=== PATIENT | male | born 1955 | race Caucasian/White ===

== ENCOUNTER 2019-06-09 11:25 | Emergency (ER) | payer MEDICAID ==
[~2019-06-09] VITALS: Ht 165.1 cm; Wt 68.0 kg
[2019-06-09] MEDS ORDERED: PREDNISONE 20MG TABLET PO ONE (14:00)
[2019-06-09 14:05] VITALS: BP 105/75
== END 2019-06-09 14:10 | disposition home or self-care (01) ==
LOC: ER 11:25
DX: L25.9 Unspecified contact dermatitis, unspecified cause (principal); F17.200 Nicotine dependence, unspecified, uncomplicated; Z90.49 Acquired absence of other specified parts of digestive tract
CPT/HCPCS: 99282

== ENCOUNTER 2020-01-07 15:09 | Inpatient (IN) | payer MEDICAID ==
[2020-01-07] VITALS (12 sets, daily range): BP systolic 101–135; BP diastolic 48–78
[~2020-01-07] VITALS: Ht 167.6 cm; Wt 64.9 kg
[2020-01-07] MEDS ORDERED: SODIUM CHLORIDE 0.9% 1000ML BAG (SEPSIS BOLUS) IV ONE (15:30)
[2020-01-07] MEDS ORDERED: ETOMIDATE 2MG/ML 10ML VIAL IV ONE (15:37)
[2020-01-07] MEDS ORDERED: SUCCINYLCHOLINE CHLORIDE 200MG/10ML IV ONE (15:37)
[2020-01-07] MEDS ORDERED: LORAZEPAM 2MG/ML CPJ ONE (15:57)
[2020-01-07] MEDS ORDERED: LORAZEPAM 2MG/ML CPJ IV ONE ×2 (16:00)
[2020-01-07] MEDS ORDERED: FENTANYL CITRATE/PF 500 MCG in SODIUM CHLORIDE 0.9% 40 ML IV PRN ×4 (16:00)
[2020-01-07] MEDS ORDERED: MIDAZOLAM HCL 2 MG/2 ML VIAL IV ONE (16:00)
[2020-01-07] MEDS ORDERED: MIDAZOLAM HCL 50 MG in DEXTROSE 5% WATER 40 ML IV ONE ×4 (16:00)
[2020-01-07 16:30] LABS: CLARITY URINE CLOUDY (CLEAR); COLOR URINE DARK YELLOW (YELLOW); KETONES URINE TRACE (NEGATIVE); LEUKOCYTE ESTERASE URINE 1+ (NEGATIVE); NITRITE URINE NEGATIVE (NEGATIVE); OCCULT BLOOD URINE 2+ (NEGATIVE); PH URINE 5.5 (4.5-8.0); PROTEIN URINE 3+ (NEGATIVE); SPECIFIC GRAVITY URINE 1.026 (1.005-1.030)
[2020-01-07 16:46] LABS: BG BASE EXCESS -2.8 mmol/L (-2.0-2.0); BG CARBOXYHEMOGLOBIN 0.3 % (0.5-1.5); BG DEOXYHEMOGLOBIN 8.8 % (0.0-5.0); BG FRACTION INSPIRED OXYGEN 100; BG HCO3 ACT 21.2 mmol/L (22.0-26.0); BG METHEMOGLOBIN 0.2 % (0.0-1.5); BG OXYGEN SATURATION 91.2 % (92.0-98.5); BG OXYHEMOGLOBIN 90.7 % (94.0-97.0); BG PCO2 34.7 mmHg (35.0-45.0); BG PH 7.404 (7.350-7.450); BG SAMPLE SITE RIGHT BRACHIAL; BG TIDAL VOLUME(mL) 500 mL; BG TOTAL HEMOGLOBIN 14.2 g/dL (12.0-18.0); BG VENT MODE VENT - A/C; BG VENT RATE 12 set
[2020-01-07] MEDS ORDERED: MAGNESIUM 2 G PREMIX 50 ML IV SCH (18:00)
[2020-01-07] MEDS ORDERED: VANCOMYCIN 1 G PREMIX 200 ML IV SCH (18:00)
[2020-01-07] MEDS ORDERED: PIPERACILLIN/TAZ 3.375G PREMIX 50 ML IV SCH ×2 (18:00→19:15)
[2020-01-07 18:02] LABS: HEMATOCRIT. 40.3 % (42.0-52.0); HEMOGLOBIN. 13.4 g/dL (14.0-18.0); MEAN CORPUSCULAR HEMOGLOBIN 29.5 pg (28.0-32.0); MEAN CORPUSCULAR VOLUME 88.9 fL (80.0-94.0); MEAN PLATELET VOLUME 10.2 fl (7.4-10.4); PLATELET 313 x1000/uL (130-400); RED BLOOD CELL COUNT 4.53 mill/uL (4.7-6.1); RED CELL DISTRIBUTION WIDTH 13.7 % (11.6-14.6)
[2020-01-07 18:10] LABS: INR 1.2; PROTHROMBIN TIME 12.7 sec (9.6-11.0)
[2020-01-07 18:15] LABS: CHLORIDE 97 mEq/L (98-107)
[2020-01-07 18:22] LABS: PLATELET ESTIMATE NORMAL
[2020-01-07] MEDS ORDERED: ONDANSETRON HCL 4MG/2ML INJ IV PRN (19:15)
[2020-01-07] MEDS ORDERED: DOCUSATE SODIUM 100MG CAPSULE PO PRN (19:15)
[2020-01-07] MEDS ORDERED: AZITHROMYCIN 500 MG in DEXT 5% WATER 250 ML IV SCH (20:00)
[2020-01-07] MEDS: ENOXAPARIN 40MG/0.4ML SYR SUBCUT SCH (22:16)
[2020-01-07] MEDS: DEXT 5%/0.45% NACL 1000ML 1,000 ML IV SCH (22:16)
[2020-01-07] MEDS: FENTANYL CITRATE/PF 1,000 MCG in SODIUM CHLORIDE 0.9% 80 ML IV PRN (22:49)
[2020-01-07] MEDS: MIDAZOLAM HCL 100 MG in DEXT 5% WATER 80 ML IV PRN (22:49)
[2020-01-08] VITALS (96 sets, daily range): BP systolic 73–131; BP diastolic 49–84
[2020-01-08] MEDS: ACETAMINOPHEN 325MG TABLET PO PRN (00:11)
[2020-01-08 00:52] LABS: BG BASE EXCESS -0.7 mmol/L (-2.0-2.0); BG CARBOXYHEMOGLOBIN 0.1 % (0.5-1.5); BG DEOXYHEMOGLOBIN 22.7 % (0.0-5.0); BG FRACTION INSPIRED OXYGEN 100; BG HCO3 ACT 24.5 mmol/L (22.0-26.0); BG METHEMOGLOBIN 0.2 % (0.0-1.5); BG OXYGEN SATURATION 77.2 % (92.0-98.5); BG PCO2 42.1 mmHg (35.0-45.0); BG PH 7.382 (7.350-7.450); BG PO2 42.2 mmHg (75.0-100.0); BG SAMPLE SITE RIGHT RADIAL; BG TIDAL VOLUME(mL) 500 mL; BG TOTAL HEMOGLOBIN 14.5 g/dL (12.0-18.0); BG VENT MODE VENT - A/C; BG VENT RATE 12 set
[2020-01-08] MEDS: PROPOFOL 10MG/ML 100ML 100 ML IV PRN ×2 (01:24→12:41)
[2020-01-08] MEDS: PIPERACILLIN/TAZOBACTAM 3.375 G in DEXT 5% WATER 100 ML IV SCH ×3 (02:06→17:12)
[2020-01-08] MEDS: NOREPINEPHRINE 8 MG in DEXT 5% WATER 242 ML IV PRN ×3 (03:57→17:12)
[2020-01-08 05:28] LABS: HEMATOCRIT. 40.8 % (42.0-52.0); HEMOGLOBIN. 13.3 g/dL (14.0-18.0); MEAN CORPUSCULAR HEMOGLOBIN 29.1 pg (28.0-32.0); MEAN CORPUSCULAR VOLUME 89.4 fL (80.0-94.0); MEAN PLATELET VOLUME 10.2 fl (7.4-10.4); PLATELET 305 x1000/uL (130-400); RED BLOOD CELL COUNT 4.56 mill/uL (4.7-6.1); RED CELL DISTRIBUTION WIDTH 14.1 % (11.6-14.6)
[2020-01-08 05:40] LABS: CHLORIDE 99 mEq/L (98-107)
[2020-01-08] MEDS: MIDAZOLAM HCL 100 MG in DEXT 5% WATER 80 ML IV PRN ×2 (07:43→18:03)
[2020-01-08] MEDS: FENTANYL CITRATE/PF 1,000 MCG in SODIUM CHLORIDE 0.9% 80 ML IV PRN ×2 (07:44→18:59)
[2020-01-08 08:11] LABS: BG CARBOXYHEMOGLOBIN 0.3 % (0.5-1.5); BG DEOXYHEMOGLOBIN 10.1 % (0.0-5.0); BG FRACTION INSPIRED OXYGEN 100; BG METHEMOGLOBIN 0.3 % (0.0-1.5); BG OXYGEN SATURATION 89.8 % (92.0-98.5); BG OXYHEMOGLOBIN 89.3 % (94.0-97.0); BG PCO2 39.3 mmHg (35.0-45.0); BG PH 7.366 (7.350-7.450); BG PO2 57.6 mmHg (75.0-100.0); BG SAMPLE SITE RIGHT BRACHIAL; BG TIDAL VOLUME(mL) 550 mL; BG TOTAL HEMOGLOBIN 13.4 g/dL (12.0-18.0); BG VENT MODE VENT - A/C; BG VENT RATE 12 set
[2020-01-08 08:43] LABS: PLATELET ESTIMATE NORMAL
[2020-01-08] MEDS: DEXT 5%/0.45% NACL 1000ML 1,000 ML IV SCH ×2 (08:47→22:49)
[2020-01-08] MEDS: MULTIVITAMINS,THER W-MINERALS TABLET PO SCH (08:47)
[2020-01-08] MEDS ORDERED: LIDOCAINE HCL 1% 20ML VIAL (Pyxis) INJ ONE (09:29)
[2020-01-08] MEDS ORDERED: POTASSIUM CHLORIDE INJ 40 MEQ in DEXT 5% WATER 250 ML IV NR (10:00)
[2020-01-08 15:41] LABS: BG CARBOXYHEMOGLOBIN 0.1 % (0.5-1.5); BG DEOXYHEMOGLOBIN 14.6 % (0.0-5.0); BG FRACTION INSPIRED OXYGEN 100; BG HCO3 ACT 22.5 mmol/L (22.0-26.0); BG METHEMOGLOBIN 0.2 % (0.0-1.5); BG OXYGEN SATURATION 85.4 % (92.0-98.5); BG OXYHEMOGLOBIN 85.1 % (94.0-97.0); BG PCO2 46.1 mmHg (35.0-45.0); BG PH 7.306 (7.350-7.450); BG PO2 52.3 mmHg (75.0-100.0); BG SAMPLE SITE RIGHT RADIAL; BG TIDAL VOLUME(mL) 550 mL; BG TOTAL HEMOGLOBIN 14.2 g/dL (12.0-18.0); BG VENT MODE VENT - A/C; BG VENT RATE 12 set
[2020-01-08] MEDS: AZITHROMYCIN 500 MG in DEXT 5% WATER 250 ML IV SCH (17:12)
[2020-01-08] MEDS: ENOXAPARIN 40MG/0.4ML SYR SUBCUT SCH (20:45)
[2020-01-08] MEDS ORDERED: AZITHROMYCIN 500 MG in DEXT 5% WATER 250 ML IV SCH (21:00)
[2020-01-08] MEDS: HYDROXYCHLOROQUINE SULFATE 200MG TABLET PO SCH (21:34)
[2020-01-08] MEDS: ASCORBIC ACID 500 MG TABLET PO SCH (21:34)
[2020-01-08] MEDS: LINEZOLID 600 MG PREMIX 300 ML IV SCH (22:49)
[2020-01-08] MEDS: NOREPINEPHRINE 16 MG in DEXT 5% WATER 484 ML IV PRN (23:50)
[2020-01-09] VITALS (92 sets, daily range): BP systolic 73–137; BP diastolic 28–89
[2020-01-09] MEDS: PIPERACILLIN/TAZOBACTAM 3.375 G in DEXT 5% WATER 100 ML IV SCH ×3 (01:51→17:50)
[2020-01-09] MEDS: MIDAZOLAM HCL 100 MG in DEXT 5% WATER 80 ML IV PRN ×2 (04:33→16:24)
[2020-01-09 05:40] LABS: HEMATOCRIT. 38.5 % (42.0-52.0); HEMOGLOBIN. 12.7 g/dL (14.0-18.0); MEAN CORPUSCULAR HEMOGLOBIN 29.7 pg (28.0-32.0); MEAN CORPUSCULAR VOLUME 89.7 fL (80.0-94.0); MEAN PLATELET VOLUME 9.8 fl (7.4-10.4); PLATELET 274 x1000/uL (130-400); RED BLOOD CELL COUNT 4.29 mill/uL (4.7-6.1); RED CELL DISTRIBUTION WIDTH 14.5 % (11.6-14.6)
[2020-01-09] MEDS: FENTANYL CITRATE/PF 1,000 MCG in SODIUM CHLORIDE 0.9% 80 ML IV PRN ×2 (06:50→18:38)
[2020-01-09] MEDS: ASCORBIC ACID 500 MG TABLET PO SCH ×2 (08:15→20:40)
[2020-01-09] MEDS: LINEZOLID 600 MG PREMIX 300 ML IV SCH ×2 (08:15→20:40)
[2020-01-09] MEDS: MULTIVITAMINS,THER W-MINERALS TABLET PO SCH (08:15)
[2020-01-09] MEDS: ZINC SULFATE 220 MG ( 50 ) CAPSULE PO SCH (08:15)
[2020-01-09] MEDS: HYDROXYCHLOROQUINE SULFATE 200MG TABLET PO SCH ×2 (08:15→20:40)
[2020-01-09 08:30] LABS: BG BASE EXCESS -3.7 mmol/L (-2.0-2.0); BG CARBOXYHEMOGLOBIN 0.4 % (0.5-1.5); BG DEOXYHEMOGLOBIN 9.4 % (0.0-5.0); BG FRACTION INSPIRED OXYGEN 100; BG HCO3 ACT 22.9 mmol/L (22.0-26.0); BG METHEMOGLOBIN 0.3 % (0.0-1.5); BG OXYGEN SATURATION 90.5 % (92.0-98.5); BG OXYHEMOGLOBIN 89.9 % (94.0-97.0); BG PCO2 47.3 mmHg (35.0-45.0); BG PH 7.302 (7.350-7.450); BG SAMPLE SITE RIGHT RADIAL; BG TIDAL VOLUME(mL) 550 mL; BG TOTAL HEMOGLOBIN 13.8 g/dL (12.0-18.0); BG VENT MODE VENT - A/C; BG VENT RATE 20 set
[2020-01-09 10:26] LABS: ATYPICAL LYMPHOCYTES 1
[2020-01-09 10:31] LABS: PLATELET ESTIMATE NORMAL
[2020-01-09] MEDS: DEXT 5%/0.45% NACL 1000ML 1,000 ML IV SCH (11:01)
[2020-01-09] MEDS: PROPOFOL 10MG/ML 100ML 100 ML IV PRN (12:26)
[2020-01-09] MEDS: NOREPINEPHRINE 16 MG in DEXT 5% WATER 484 ML IV PRN (15:10)
[2020-01-09] MEDS: AZITHROMYCIN 500 MG in DEXT 5% WATER 250 ML IV SCH (17:50)
[2020-01-09] MEDS: ENOXAPARIN 30MG/0.3ML SYR SUBCUT SCH (20:40)
[2020-01-10] VITALS (96 sets, daily range): BP systolic 88–131; BP diastolic 49–79
[2020-01-10] MEDS: PIPERACILLIN/TAZOBACTAM 3.375 G in DEXT 5% WATER 100 ML IV SCH ×3 (02:45→17:36)
[2020-01-10] MEDS: DEXT 5%/0.45% NACL 1000ML 1,000 ML IV SCH (02:45)
[2020-01-10] MEDS: MIDAZOLAM HCL 100 MG in DEXT 5% WATER 80 ML IV PRN ×2 (04:43→13:20)
[2020-01-10] MEDS: FENTANYL CITRATE/PF 1,000 MCG in SODIUM CHLORIDE 0.9% 80 ML IV PRN ×2 (04:44→13:21)
[2020-01-10] MEDS: PROPOFOL 10MG/ML 100ML 100 ML IV PRN (05:31)
[2020-01-10 05:34] LABS: HEMATOCRIT. 32.8 % (42.0-52.0); HEMOGLOBIN. 10.9 g/dL (14.0-18.0); MEAN CORPUSCULAR HEMOGLOBIN 29.1 pg (28.0-32.0); MEAN CORPUSCULAR VOLUME 87.8 fL (80.0-94.0); MEAN PLATELET VOLUME 9.9 fl (7.4-10.4); PLATELET 235 x1000/uL (130-400); RED BLOOD CELL COUNT 3.74 mill/uL (4.7-6.1); RED CELL DISTRIBUTION WIDTH 14.9 % (11.6-14.6)
[2020-01-10] MEDS: MULTIVITAMINS,THER W-MINERALS TABLET PO SCH (08:01)
[2020-01-10] MEDS: ASCORBIC ACID 500 MG TABLET PO SCH (08:01)
[2020-01-10] MEDS: HYDROXYCHLOROQUINE SULFATE 200MG TABLET PO SCH ×2 (08:01→20:10)
[2020-01-10] MEDS: LINEZOLID 600 MG PREMIX 300 ML IV SCH ×2 (08:02→20:10)
[2020-01-10] MEDS: PANTOPRAZOLE SODIUM 40 MG/VIAL IV SCH (08:08)
[2020-01-10] MEDS: ZINC SULFATE 220 MG ( 50 ) CAPSULE PO SCH (08:08)
[2020-01-10 12:19] LABS: PLATELET ESTIMATE NORMAL
[2020-01-10] MEDS ORDERED: PROPOFOL 10MG/ML 100ML 100 ML IV PRN (13:00)
[2020-01-10] MEDS ORDERED: ASCORBIC ACID 500 MG TABLET PO SCH (14:00)
[2020-01-10] MEDS: THIAMINE HCL 100MG TABLET PO SCH ×2 (14:00→20:10)
[2020-01-10 15:02] LABS: BG BASE EXCESS -4.9 mmol/L (-2.0-2.0); BG CARBOXYHEMOGLOBIN 0.1 % (0.5-1.5); BG DEOXYHEMOGLOBIN 2.7 % (0.0-5.0); BG FRACTION INSPIRED OXYGEN 60; BG HCO3 ACT 20.8 mmol/L (22.0-26.0); BG METHEMOGLOBIN 0.2 % (0.0-1.5); BG OXYGEN SATURATION 97.3 % (92.0-98.5); BG PCO2 40.7 mmHg (35.0-45.0); BG PH 7.326 (7.350-7.450); BG PO2 92.6 mmHg (75.0-100.0); BG SAMPLE SITE RIGHT RADIAL; BG TIDAL VOLUME(mL) 550 mL; BG TOTAL HEMOGLOBIN 12.3 g/dL (12.0-18.0); BG VENT MODE VENT - A/C; BG VENT RATE 24 set
[2020-01-10] MEDS: METHYLPREDNISOLONE SOD SUCC 40 MG/ML VIAL IV SCH (17:35)
[2020-01-10] MEDS: AZITHROMYCIN 500 MG in DEXT 5% WATER 250 ML IV SCH (17:35)
[2020-01-10] MEDS ORDERED: CEFTRIAXONE 2 G PREMIX 50 ML IV SCH (18:30)
[2020-01-10] MEDS: ENOXAPARIN 30MG/0.3ML SYR SUBCUT SCH (20:10)
[2020-01-10] MEDS: CEFTRIAXONE 2 G in DEXTROSE 5% WATER 50 ML IV SCH (20:26)
[2020-01-11] VITALS (97 sets, daily range): BP systolic 74–132; BP diastolic 37–83
[2020-01-11] MEDS: MIDAZOLAM HCL 100 MG in DEXT 5% WATER 80 ML IV PRN ×3 (01:25→22:21)
[2020-01-11] MEDS: DEXT 5%/0.45% NACL 1000ML 1,000 ML IV SCH ×2 (02:49→14:32)
[2020-01-11] MEDS: FENTANYL CITRATE/PF 1,000 MCG in SODIUM CHLORIDE 0.9% 80 ML IV PRN ×2 (04:04→16:30)
[2020-01-11] MEDS: METHYLPREDNISOLONE SOD SUCC 40 MG/ML VIAL IV SCH ×2 (05:51→17:18)
[2020-01-11 07:10] LABS: HIV SCREEN 4G Non Reactive (Non Reactive)
[2020-01-11] MEDS: PANTOPRAZOLE SODIUM 40 MG/VIAL IV SCH (08:07)
[2020-01-11] MEDS: MULTIVITAMINS,THER W-MINERALS TABLET PO SCH (08:07)
[2020-01-11] MEDS: ZINC SULFATE 220 MG ( 50 ) CAPSULE PO SCH (08:07)
[2020-01-11] MEDS: HYDROXYCHLOROQUINE SULFATE 200MG TABLET PO SCH ×2 (08:07→21:13)
[2020-01-11] MEDS: THIAMINE HCL 100MG TABLET PO SCH ×2 (08:07→21:13)
[2020-01-11] MEDS: LINEZOLID 600 MG PREMIX 300 ML IV SCH (08:08)
[2020-01-11] MEDS: ASCORBIC ACID 500 MG TABLET PO SCH ×2 (08:08→17:18)
[2020-01-11 08:52] LABS: BG CARBOXYHEMOGLOBIN 0.3 % (0.5-1.5); BG DEOXYHEMOGLOBIN 1.8 % (0.0-5.0); BG HCO3 ACT 13.1 mmol/L (22.0-26.0); BG METHEMOGLOBIN 0.3 % (0.0-1.5); BG OXYGEN SATURATION 98.2 % (92.0-98.5); BG OXYHEMOGLOBIN 97.6 % (94.0-97.0); BG PCO2 27.7 mmHg (35.0-45.0); BG PH 7.292 (7.350-7.450); BG PO2 116.4 mmHg (75.0-100.0); BG SAMPLE SITE RIGHT BRACHIAL; BG TIDAL VOLUME(mL) 475 mL; BG TOTAL HEMOGLOBIN 11.2 g/dL (12.0-18.0); BG VENT MODE VENT - A/C; BG VENT RATE 24 set
[2020-01-11] MEDS ORDERED: SODIUM BICARBONATE 8.4% 1 MEQ/ML 50ML SYR IV NR (09:15)
[2020-01-11 12:10] LABS: HEMATOCRIT. 33.4 % (42.0-52.0); MEAN CORPUSCULAR HEMOGLOBIN 29.4 pg (28.0-32.0); PLATELET 201 x1000/uL (130-400); RED BLOOD CELL COUNT 3.75 mill/uL (4.7-6.1)
[2020-01-11 12:23] LABS: CHLORIDE 94 mEq/L (98-107)
[2020-01-11 13:22] LABS: PLATELET ESTIMATE NORMAL
[2020-01-11] MEDS: AZITHROMYCIN 500 MG in DEXT 5% WATER 250 ML IV SCH (17:18)
[2020-01-11] MEDS: ENOXAPARIN 30MG/0.3ML SYR SUBCUT SCH (21:12)
[2020-01-11] MEDS: CEFTRIAXONE 2 G in DEXTROSE 5% WATER 50 ML IV SCH (21:12)
[2020-01-12] VITALS (93 sets, daily range): BP systolic 105–202; BP diastolic 64–124
[2020-01-12] MEDS: FENTANYL CITRATE/PF 1,000 MCG in SODIUM CHLORIDE 0.9% 80 ML IV PRN ×4 (02:15→23:15)
[2020-01-12] MEDS: METHYLPREDNISOLONE SOD SUCC 40 MG/ML VIAL IV SCH ×2 (05:28→17:18)
[2020-01-12 06:29] LABS: HEMATOCRIT. 32.2 % (42.0-52.0); MEAN CORPUSCULAR HEMOGLOBIN 29.5 pg (28.0-32.0); MEAN CORPUSCULAR VOLUME 86.4 fL (80.0-94.0); PLATELET 292 x1000/uL (130-400); RED BLOOD CELL COUNT 3.73 mill/uL (4.7-6.1); RED CELL DISTRIBUTION WIDTH 14.5 % (11.6-14.6)
[2020-01-12 07:07] LABS: CHLORIDE 99 mEq/L (98-107)
[2020-01-12 07:15] LABS: PHOSPHORUS 4.5 mg/dL (2.5-4.9)
[2020-01-12] MEDS: MIDAZOLAM HCL 100 MG in DEXT 5% WATER 80 ML IV PRN ×2 (07:44→18:16)
[2020-01-12 10:04] LABS: BG BASE EXCESS -1.9 mmol/L (-2.0-2.0); BG CARBOXYHEMOGLOBIN 0.3 % (0.5-1.5); BG DEOXYHEMOGLOBIN 5.6 % (0.0-5.0); BG FRACTION INSPIRED OXYGEN 60; BG HCO3 ACT 22.9 mmol/L (22.0-26.0); BG METHEMOGLOBIN 0.1 % (0.0-1.5); BG OXYGEN SATURATION 94.4 % (92.0-98.5); BG PCO2 38.8 mmHg (35.0-45.0); BG PH 7.388 (7.350-7.450); BG PO2 73.6 mmHg (75.0-100.0); BG SAMPLE SITE RIGHT RADIAL; BG TIDAL VOLUME(mL) 450 mL; BG TOTAL HEMOGLOBIN 11.9 g/dL (12.0-18.0); BG VENT MODE VENT - A/C PRVC; BG VENT RATE 26 set
[2020-01-12 10:22] LABS: PLATELET ESTIMATE NORMAL
[2020-01-12] MEDS: PANTOPRAZOLE SODIUM 40 MG/VIAL IV SCH (10:24)
[2020-01-12] MEDS: THIAMINE HCL 100MG TABLET PO SCH ×2 (10:24→20:00)
[2020-01-12] MEDS: ASCORBIC ACID 500 MG TABLET PO SCH ×2 (10:24→17:18)
[2020-01-12] MEDS: ZINC SULFATE 220 MG ( 50 ) CAPSULE PO SCH (10:25)
[2020-01-12] MEDS: MULTIVITAMINS,THER W-MINERALS TABLET PO SCH (10:25)
[2020-01-12] MEDS: HYDROXYCHLOROQUINE SULFATE 200MG TABLET PO SCH ×2 (10:25→20:00)
[2020-01-12] MEDS: AZITHROMYCIN 500 MG in DEXT 5% WATER 250 ML IV SCH (17:17)
[2020-01-12] MEDS ORDERED: PROPOFOL 10MG/ML 100ML 100 ML IV PRN (19:30)
[2020-01-12] MEDS: ENOXAPARIN 30MG/0.3ML SYR SUBCUT SCH (19:53)
[2020-01-12] MEDS: CEFTRIAXONE 2 G in DEXTROSE 5% WATER 50 ML IV SCH (21:41)
[2020-01-13] VITALS (96 sets, daily range): BP systolic 97–157; BP diastolic 60–88
[2020-01-13] MEDS: FENTANYL CITRATE/PF 1,000 MCG in SODIUM CHLORIDE 0.9% 80 ML IV PRN ×8 (02:50→23:52)
[2020-01-13 05:40] LABS: PHOSPHORUS 3.8 mg/dL (2.5-4.9)
[2020-01-13] MEDS: METHYLPREDNISOLONE SOD SUCC 40 MG/ML VIAL IV SCH ×2 (06:01→17:18)
[2020-01-13 06:08] LABS: HEMATOCRIT. 32.7 % (42.0-52.0); MEAN CORPUSCULAR HEMOGLOBIN 29.4 pg (28.0-32.0); MEAN CORPUSCULAR VOLUME 87.4 fL (80.0-94.0); MEAN PLATELET VOLUME 10.1 fl (7.4-10.4); PLATELET 336 x1000/uL (130-400); RED BLOOD CELL COUNT 3.74 mill/uL (4.7-6.1); RED CELL DISTRIBUTION WIDTH 14.2 % (11.6-14.6)
[2020-01-13 07:53] LABS: BG BASE EXCESS 1.9 mmol/L (-2.0-2.0); BG CARBOXYHEMOGLOBIN 0.1 % (0.5-1.5); BG HCO3 ACT 26.6 mmol/L (22.0-26.0); BG METHEMOGLOBIN 0.3 % (0.0-1.5); BG OXYHEMOGLOBIN 93.6 % (94.0-97.0); BG PCO2 41.6 mmHg (35.0-45.0); BG PH 7.423 (7.350-7.450); BG SAMPLE SITE RIGHT BRACHIAL; BG TIDAL VOLUME(mL) 450 mL; BG VENT MODE VENT - A/C; BG VENT RATE 26 set
[2020-01-13 08:05] LABS: PLATELET ESTIMATE NORMAL
[2020-01-13] MEDS: PANTOPRAZOLE SODIUM 40 MG/VIAL IV SCH (08:59)
[2020-01-13] MEDS: ZINC SULFATE 220 MG ( 50 ) CAPSULE PO SCH (08:59)
[2020-01-13] MEDS: THIAMINE HCL 100MG TABLET PO SCH ×2 (09:00→20:55)
[2020-01-13] MEDS: MULTIVITAMINS,THER W-MINERALS TABLET PO SCH (09:00)
[2020-01-13] MEDS: ASCORBIC ACID 500 MG TABLET PO SCH ×2 (09:00→17:18)
[2020-01-13] MEDS: HYDROXYCHLOROQUINE SULFATE 200MG TABLET PO SCH (09:00)
[2020-01-13] MEDS: MIDAZOLAM HCL 100 MG in DEXT 5% WATER 80 ML IV PRN ×2 (09:42→12:53)
[2020-01-13] MEDS ORDERED: PROPOFOL 10MG/ML 100ML 100 ML IV PRN (13:00)
[2020-01-13] MEDS: ACETAMINOPHEN 325MG TABLET PO PRN (19:05)
[2020-01-13] MEDS: CEFTRIAXONE 2 G in DEXTROSE 5% WATER 50 ML IV SCH (20:52)
[2020-01-13] MEDS: ENOXAPARIN 30MG/0.3ML SYR SUBCUT SCH (20:54)
[2020-01-14] VITALS (83 sets, daily range): BP systolic 91–125; BP diastolic 52–74
[2020-01-14] MEDS: MIDAZOLAM HCL 100 MG in DEXT 5% WATER 80 ML IV PRN ×3 (00:27→20:53)
[2020-01-14] MEDS: FENTANYL CITRATE/PF 1,000 MCG in SODIUM CHLORIDE 0.9% 80 ML IV PRN ×5 (03:21→20:33)
[2020-01-14] MEDS: METHYLPREDNISOLONE SOD SUCC 40 MG/ML VIAL IV SCH ×2 (06:40→17:00)
[2020-01-14 06:58] LABS: HEMATOCRIT. 34.3 % (42.0-52.0); HEMOGLOBIN. 11.3 g/dL (14.0-18.0); MEAN CORPUSCULAR VOLUME 88.3 fL (80.0-94.0); MEAN PLATELET VOLUME 9.9 fl (7.4-10.4); PLATELET 326 x1000/uL (130-400); RED BLOOD CELL COUNT 3.88 mill/uL (4.7-6.1); RED CELL DISTRIBUTION WIDTH 14.7 % (11.6-14.6)
[2020-01-14 07:04] LABS: CHLORIDE 115 mEq/L (98-107)
[2020-01-14] MEDS: ZINC SULFATE 220 MG ( 50 ) CAPSULE PO SCH (09:44)
[2020-01-14] MEDS: THIAMINE HCL 100MG TABLET PO SCH ×2 (09:45→20:52)
[2020-01-14] MEDS: ASCORBIC ACID 500 MG TABLET PO SCH ×2 (09:45→16:59)
[2020-01-14] MEDS: MULTIVITAMINS,THER W-MINERALS TABLET PO SCH (09:45)
[2020-01-14] MEDS: PANTOPRAZOLE SODIUM 40 MG/VIAL IV SCH (09:48)
[2020-01-14] MEDS ORDERED: PROPOFOL 10MG/ML 100ML 100 ML IV PRN (12:00)
[2020-01-14 12:27] LABS: PLATELET ESTIMATE NORMAL
[2020-01-14] MEDS: CEFTRIAXONE 2 G in DEXTROSE 5% WATER 50 ML IV SCH (20:52)
[2020-01-14] MEDS: ENOXAPARIN 40MG/0.4ML SYR SUBCUT SCH (20:53)
[2020-01-14] MEDS: PROPOFOL 10MG/ML 100ML 100 ML IV PRN (23:38)
[2020-01-15] VITALS (66 sets, daily range): BP systolic 92–132; BP diastolic 53–72
[2020-01-15] MEDS: ACETAMINOPHEN 325MG TABLET PO PRN (00:37)
[2020-01-15] MEDS: FENTANYL CITRATE/PF 1,000 MCG in SODIUM CHLORIDE 0.9% 80 ML IV PRN ×5 (02:13→18:39)
[2020-01-15] MEDS: METHYLPREDNISOLONE SOD SUCC 40 MG/ML VIAL IV SCH ×2 (05:39→17:55)
[2020-01-15 05:50] LABS: HEMATOCRIT. 32.1 % (42.0-52.0); HEMOGLOBIN. 10.4 g/dL (14.0-18.0); MEAN CORPUSCULAR HEMOGLOBIN 28.9 pg (28.0-32.0); MEAN CORPUSCULAR VOLUME 89.2 fL (80.0-94.0); MEAN PLATELET VOLUME 10.1 fl (7.4-10.4); PLATELET 363 x1000/uL (130-400); RED CELL DISTRIBUTION WIDTH 14.7 % (11.6-14.6)
[2020-01-15] MEDS: PROPOFOL 10MG/ML 100ML 100 ML IV PRN ×3 (07:05→23:44)
[2020-01-15] MEDS: MIDAZOLAM HCL 100 MG in DEXT 5% WATER 80 ML IV PRN ×2 (07:59→18:38)
[2020-01-15 08:18] LABS: BG BASE EXCESS -0.7 mmol/L (-2.0-2.0); BG CARBOXYHEMOGLOBIN 0.3 % (0.5-1.5); BG DEOXYHEMOGLOBIN 4.8 % (0.0-5.0); BG HCO3 ACT 24.6 mmol/L (22.0-26.0); BG METHEMOGLOBIN 0.1 % (0.0-1.5); BG OXYGEN SATURATION 95.2 % (92.0-98.5); BG OXYHEMOGLOBIN 94.8 % (94.0-97.0); BG PCO2 43.3 mmHg (35.0-45.0); BG PH 7.372 (7.350-7.450); BG PO2 78.6 mmHg (75.0-100.0); BG SAMPLE SITE RIGHT RADIAL; BG TIDAL VOLUME(mL) 450 mL; BG TOTAL HEMOGLOBIN 10.4 g/dL (12.0-18.0); BG VENT MODE VENT - A/C; BG VENT RATE 22 set
[2020-01-15] MEDS: ZINC SULFATE 220 MG ( 50 ) CAPSULE PO SCH (09:32)
[2020-01-15] MEDS: MULTIVITAMINS,THER W-MINERALS TABLET PO SCH (09:32)
[2020-01-15] MEDS: THIAMINE HCL 100MG TABLET PO SCH ×2 (09:32→22:17)
[2020-01-15] MEDS: PANTOPRAZOLE SODIUM 40 MG/VIAL IV SCH (09:32)
[2020-01-15] MEDS: ASCORBIC ACID 500 MG TABLET PO SCH ×2 (12:18→16:14)
[2020-01-15 13:21] LABS: PLATELET ESTIMATE NORMAL
[2020-01-15] MEDS ORDERED: SODIUM POLYSTYRENE SULFONATE 15 G/60 ML BOT PO SCH (15:00)
[2020-01-15] MEDS: CEFTRIAXONE 2 G in DEXTROSE 5% WATER 50 ML IV SCH (20:59)
[2020-01-15] MEDS: ENOXAPARIN 40MG/0.4ML SYR SUBCUT SCH (22:18)
[2020-01-16] VITALS (81 sets, daily range): BP systolic 103–144; BP diastolic 63–101
[2020-01-16] MEDS: FENTANYL CITRATE/PF 1,000 MCG in SODIUM CHLORIDE 0.9% 80 ML IV PRN ×4 (02:02→22:28)
[2020-01-16 06:16] LABS: CHLORIDE 123 mEq/L (98-107)
[2020-01-16] MEDS: METHYLPREDNISOLONE SOD SUCC 40 MG/ML VIAL IV SCH ×2 (07:11→17:42)
[2020-01-16 08:00] LABS: BG CARBOXYHEMOGLOBIN 0.3 % (0.5-1.5); BG DEOXYHEMOGLOBIN 3.6 % (0.0-5.0); BG HCO3 ACT 24.8 mmol/L (22.0-26.0); BG METHEMOGLOBIN 0.1 % (0.0-1.5); BG OXYGEN SATURATION 96.4 % (92.0-98.5); BG PCO2 41.4 mmHg (35.0-45.0); BG PH 7.396 (7.350-7.450); BG PO2 85.9 mmHg (75.0-100.0); BG SAMPLE SITE RIGHT RADIAL; BG TIDAL VOLUME(mL) 450 mL; BG TOTAL HEMOGLOBIN 10.8 g/dL (12.0-18.0); BG VENT MODE VENT - A/C; BG VENT RATE 22 set
[2020-01-16] MEDS: MIDAZOLAM HCL 100 MG in DEXT 5% WATER 80 ML IV PRN ×2 (08:21→18:33)
[2020-01-16] MEDS: MULTIVITAMINS,THER W-MINERALS TABLET PO SCH (09:01)
[2020-01-16] MEDS: ASCORBIC ACID 500 MG TABLET PO SCH ×2 (09:01→17:42)
[2020-01-16] MEDS: ZINC SULFATE 220 MG ( 50 ) CAPSULE PO SCH (09:01)
[2020-01-16] MEDS: PANTOPRAZOLE SODIUM 40 MG/VIAL IV SCH (09:01)
[2020-01-16] MEDS: THIAMINE HCL 100MG TABLET PO SCH ×2 (09:01→21:04)
[2020-01-16] MEDS: PROPOFOL 10MG/ML 100ML 100 ML IV PRN ×2 (10:37→18:30)
[2020-01-16] MEDS: CEFTRIAXONE 2 G in DEXTROSE 5% WATER 50 ML IV SCH (20:03)
[2020-01-16] MEDS: ENOXAPARIN 40MG/0.4ML SYR SUBCUT SCH (20:57)
[2020-01-17] VITALS (92 sets, daily range): BP systolic 95–157; BP diastolic 58–116
[2020-01-17] MEDS: FENTANYL CITRATE/PF 1,000 MCG in SODIUM CHLORIDE 0.9% 80 ML IV PRN ×6 (02:56→23:47)
[2020-01-17] MEDS: MIDAZOLAM HCL 100 MG in DEXT 5% WATER 80 ML IV PRN ×2 (04:52→15:18)
[2020-01-17] MEDS: METHYLPREDNISOLONE SOD SUCC 40 MG/ML VIAL IV SCH ×2 (05:48→17:50)
[2020-01-17] MEDS: PROPOFOL 10MG/ML 100ML 100 ML IV PRN ×4 (06:10→22:06)
[2020-01-17] MEDS: THIAMINE HCL 100MG TABLET PO SCH ×2 (08:18→21:57)
[2020-01-17] MEDS: PANTOPRAZOLE SODIUM 40 MG/VIAL IV SCH (08:18)
[2020-01-17] MEDS: MULTIVITAMINS,THER W-MINERALS TABLET PO SCH (08:18)
[2020-01-17] MEDS: ASCORBIC ACID 500 MG TABLET PO SCH ×2 (08:18→17:50)
[2020-01-17] MEDS: ZINC SULFATE 220 MG ( 50 ) CAPSULE PO SCH (08:19)
[2020-01-17 10:05] LABS: BG BASE EXCESS -1.7 mmol/L (-2.0-2.0); BG CARBOXYHEMOGLOBIN 0.3 % (0.5-1.5); BG DEOXYHEMOGLOBIN 3.9 % (0.0-5.0); BG FRACTION INSPIRED OXYGEN 60; BG HCO3 ACT 23.2 mmol/L (22.0-26.0); BG METHEMOGLOBIN 0.3 % (0.0-1.5); BG OXYGEN SATURATION 96.1 % (92.0-98.5); BG OXYHEMOGLOBIN 95.5 % (94.0-97.0); BG PCO2 39.5 mmHg (35.0-45.0); BG PH 7.386 (7.350-7.450); BG PO2 84.8 mmHg (75.0-100.0); BG SAMPLE SITE RIGHT RADIAL; BG TIDAL VOLUME(mL) 450 mL; BG TOTAL HEMOGLOBIN 12.1 g/dL (12.0-18.0); BG VENT MODE VENT - A/C PRVC; BG VENT RATE 22 set
[2020-01-17] MEDS ORDERED: SODIUM CHLORIDE 0.45% 500 ML IV ONE (11:15)
[2020-01-17] MEDS: CEFTRIAXONE 2 G in DEXTROSE 5% WATER 50 ML IV SCH (20:01)
[2020-01-17] MEDS: ENOXAPARIN 40MG/0.4ML SYR SUBCUT SCH (21:58)
[2020-01-18] VITALS (96 sets, daily range): BP systolic 92–140; BP diastolic 56–85
[2020-01-18] MEDS: PROPOFOL 10MG/ML 100ML 100 ML IV PRN ×4 (02:11→22:57)
[2020-01-18] MEDS: MIDAZOLAM HCL 100 MG in DEXT 5% WATER 80 ML IV PRN ×2 (02:21→16:03)
[2020-01-18] MEDS: FENTANYL CITRATE/PF 1,000 MCG in SODIUM CHLORIDE 0.9% 80 ML IV PRN ×6 (04:04→22:55)
[2020-01-18] MEDS: METHYLPREDNISOLONE SOD SUCC 40 MG/ML VIAL IV SCH ×2 (05:35→17:07)
[2020-01-18 06:28] LABS: HEMATOCRIT. 31.6 % (42.0-52.0); HEMOGLOBIN. 10.1 g/dL (14.0-18.0); MEAN CORPUSCULAR HEMOGLOBIN 29.1 pg (28.0-32.0); MEAN CORPUSCULAR VOLUME 91.2 fL (80.0-94.0); MEAN PLATELET VOLUME 10.7 fl (7.4-10.4); PLATELET 380 x1000/uL (130-400); RED BLOOD CELL COUNT 3.47 mill/uL (4.7-6.1); RED CELL DISTRIBUTION WIDTH 14.8 % (11.6-14.6)
[2020-01-18 07:56] LABS: BG BASE EXCESS -1.9 mmol/L (-2.0-2.0); BG CARBOXYHEMOGLOBIN 0.3 % (0.5-1.5); BG DEOXYHEMOGLOBIN 3.8 % (0.0-5.0); BG HCO3 ACT 23.5 mmol/L (22.0-26.0); BG METHEMOGLOBIN 0.1 % (0.0-1.5); BG OXYGEN SATURATION 96.2 % (92.0-98.5); BG OXYHEMOGLOBIN 95.8 % (94.0-97.0); BG PCO2 42.6 mmHg (35.0-45.0); BG PO2 89.9 mmHg (75.0-100.0); BG SAMPLE SITE RIGHT BRACHIAL; BG TIDAL VOLUME(mL) 450 mL; BG TOTAL HEMOGLOBIN 10.3 g/dL (12.0-18.0); BG VENT MODE VENT - A/C; BG VENT RATE 18 set
[2020-01-18] MEDS: PANTOPRAZOLE SODIUM 40 MG/VIAL IV SCH (09:20)
[2020-01-18] MEDS: MULTIVITAMINS,THER W-MINERALS TABLET PO SCH (09:21)
[2020-01-18] MEDS: THIAMINE HCL 100MG TABLET PO SCH ×2 (09:21→21:23)
[2020-01-18] MEDS: ASCORBIC ACID 500 MG TABLET PO SCH ×2 (09:21→17:07)
[2020-01-18] MEDS: ZINC SULFATE 220 MG ( 50 ) CAPSULE PO SCH (09:21)
[2020-01-18 09:23] LABS: PLATELET ESTIMATE NORMAL
[2020-01-18] MEDS: SODIUM CHLORIDE 0.45% 1,000 ML IV SCH ×2 (10:00→22:31)
[2020-01-18] MEDS: ACETAMINOPHEN 325MG TABLET PO PRN (18:18)
[2020-01-18] MEDS: QUETIAPINE FUMARATE 25MG TABLET PO SCH (21:23)
[2020-01-18] MEDS: ENOXAPARIN 40MG/0.4ML SYR SUBCUT SCH (21:24)
[2020-01-19] VITALS (93 sets, daily range): BP systolic 88–137; BP diastolic 51–79
[2020-01-19] MEDS ORDERED: CEFTRIAXONE 2 G PREMIX 50 ML IV SCH (01:45)
[2020-01-19] MEDS: FENTANYL CITRATE/PF 1,000 MCG in SODIUM CHLORIDE 0.9% 80 ML IV PRN ×6 (02:15→22:38)
[2020-01-19] MEDS: CEFTRIAXONE 2 G in DEXTROSE 5% WATER 50 ML IV SCH (03:47)
[2020-01-19] MEDS: PROPOFOL 10MG/ML 100ML 100 ML IV PRN ×4 (04:12→21:32)
[2020-01-19] MEDS: METHYLPREDNISOLONE SOD SUCC 40 MG/ML VIAL IV SCH ×2 (05:37→17:05)
[2020-01-19] MEDS: SODIUM CHLORIDE 0.45% 1,000 ML IV SCH ×2 (05:37→15:06)
[2020-01-19 06:18] LABS: BASOPHILS % 0.3 % (0.0-2.0); EOSINOPHILS % 0.4 % (0.0-5.0); HEMATOCRIT. 30.2 % (42.0-52.0); HEMOGLOBIN. 9.4 g/dL (14.0-18.0); LYMPHOCYTES % 13.5 % (20.0-50.0); MEAN CORPUSCULAR HEMOGLOBIN 28.7 pg (28.0-32.0); MEAN CORPUSCULAR VOLUME 92.7 fL (80.0-94.0); MEAN PLATELET VOLUME 10.9 fl (7.4-10.4); MONOCYTES % 4.2 % (2.0-8.0); NEUTROPHILS % 81.6 % (40.0-76.0); PLATELET 316 x1000/uL (130-400); RED BLOOD CELL COUNT 3.26 mill/uL (4.7-6.1); RED CELL DISTRIBUTION WIDTH 14.8 % (11.6-14.6)
[2020-01-19] MEDS: ZINC SULFATE 220 MG ( 50 ) CAPSULE PO SCH (08:51)
[2020-01-19] MEDS: ASCORBIC ACID 500 MG TABLET PO SCH ×2 (08:52→17:04)
[2020-01-19] MEDS: THIAMINE HCL 100MG TABLET PO SCH ×2 (08:52→21:10)
[2020-01-19] MEDS: QUETIAPINE FUMARATE 25MG TABLET PO SCH ×2 (08:52→21:11)
[2020-01-19] MEDS: PANTOPRAZOLE SODIUM 40 MG/VIAL IV SCH (08:52)
[2020-01-19] MEDS: MULTIVITAMINS,THER W-MINERALS TABLET PO SCH (08:52)
[2020-01-19 09:24] LABS: BG BASE EXCESS -3.9 mmol/L (-2.0-2.0); BG CARBOXYHEMOGLOBIN 0.2 % (0.5-1.5); BG DEOXYHEMOGLOBIN 2.8 % (0.0-5.0); BG FRACTION INSPIRED OXYGEN 50; BG HCO3 ACT 21.7 mmol/L (22.0-26.0); BG METHEMOGLOBIN 0.2 % (0.0-1.5); BG OXYGEN SATURATION 97.2 % (92.0-98.5); BG OXYHEMOGLOBIN 96.8 % (94.0-97.0); BG PCO2 41.7 mmHg (35.0-45.0); BG PH 7.335 (7.350-7.450); BG PO2 102.8 mmHg (75.0-100.0); BG SAMPLE SITE RIGHT RADIAL; BG TIDAL VOLUME(mL) 450 mL; BG TOTAL HEMOGLOBIN 10.4 g/dL (12.0-18.0); BG VENT MODE VENT - PRVC; BG VENT RATE 16 set
[2020-01-19] MEDS: MIDAZOLAM HCL 100 MG in DEXT 5% WATER 80 ML IV PRN (12:02)
[2020-01-19] MEDS: ENOXAPARIN 40MG/0.4ML SYR SUBCUT SCH (21:11)
[2020-01-20] VITALS (95 sets, daily range): BP systolic 90–150; BP diastolic 53–98
[2020-01-20] MEDS: PROPOFOL 10MG/ML 100ML 100 ML IV PRN ×4 (01:55→20:16)
[2020-01-20] MEDS: SODIUM CHLORIDE 0.45% 1,000 ML IV SCH ×2 (02:00→11:25)
[2020-01-20] MEDS: FENTANYL CITRATE/PF 1,000 MCG in SODIUM CHLORIDE 0.9% 80 ML IV PRN ×5 (02:58→23:44)
[2020-01-20] MEDS: CEFTRIAXONE 2 G in DEXTROSE 5% WATER 50 ML IV SCH (04:05)
[2020-01-20] MEDS ORDERED: METHYLPREDNISOLONE SOD SUCC 40 MG/ML VIAL IV SCH (09:00)
[2020-01-20] MEDS: PANTOPRAZOLE SODIUM 40 MG/VIAL IV SCH (09:09)
[2020-01-20] MEDS: MULTIVITAMINS,THER W-MINERALS TABLET PO SCH (09:10)
[2020-01-20] MEDS: ZINC SULFATE 220 MG ( 50 ) CAPSULE PO SCH (09:10)
[2020-01-20] MEDS: THIAMINE HCL 100MG TABLET PO SCH ×2 (09:10→20:17)
[2020-01-20] MEDS: ASCORBIC ACID 500 MG TABLET PO SCH ×2 (09:10→16:37)
[2020-01-20] MEDS: QUETIAPINE FUMARATE 25MG TABLET PO SCH ×2 (09:10→20:17)
[2020-01-20 09:29] LABS: BG BASE EXCESS -3.9 mmol/L (-2.0-2.0); BG CARBOXYHEMOGLOBIN 0.3 % (0.5-1.5); BG DEOXYHEMOGLOBIN 3.3 % (0.0-5.0); BG FRACTION INSPIRED OXYGEN 40; BG METHEMOGLOBIN 0.3 % (0.0-1.5); BG OXYGEN SATURATION 96.7 % (92.0-98.5); BG OXYHEMOGLOBIN 96.1 % (94.0-97.0); BG PCO2 37.2 mmHg (35.0-45.0); BG PH 7.369 (7.350-7.450); BG PO2 86.1 mmHg (75.0-100.0); BG SAMPLE SITE RIGHT RADIAL; BG TIDAL VOLUME(mL) 450 mL; BG TOTAL HEMOGLOBIN 9.4 g/dL (12.0-18.0); BG VENT MODE VENT - A/C; BG VENT RATE 16 set
[2020-01-20] MEDS: ENOXAPARIN 40MG/0.4ML SYR SUBCUT SCH (20:17)
[2020-01-20] MEDS: ACETAMINOPHEN 325MG TABLET PO PRN (23:51)
[2020-01-21] VITALS (85 sets, daily range): BP systolic 94–143; BP diastolic 58–87
[2020-01-21] MEDS: PROPOFOL 10MG/ML 100ML 100 ML IV PRN ×4 (02:35→19:57)
[2020-01-21] MEDS: FENTANYL CITRATE/PF 1,000 MCG in SODIUM CHLORIDE 0.9% 80 ML IV PRN ×7 (02:36→23:07)
[2020-01-21] MEDS: CEFTRIAXONE 2 G in DEXTROSE 5% WATER 50 ML IV SCH (05:06)
[2020-01-21] MEDS: SODIUM CHLORIDE 0.45% 1,000 ML IV SCH (05:07)
[2020-01-21 05:50] LABS: CHLORIDE 119 mEq/L (98-107)
[2020-01-21 05:55] LABS: HEMATOCRIT. 34.5 % (42.0-52.0); HEMOGLOBIN. 11.1 g/dL (14.0-18.0); MEAN CORPUSCULAR VOLUME 90.7 fL (80.0-94.0); MEAN PLATELET VOLUME 11.1 fl (7.4-10.4); PLATELET 302 x1000/uL (130-400); RED BLOOD CELL COUNT 3.81 mill/uL (4.7-6.1); RED CELL DISTRIBUTION WIDTH 14.1 % (11.6-14.6)
[2020-01-21 07:30] LABS: PLATELET ESTIMATE NORMAL
[2020-01-21] MEDS ORDERED: POTASSIUM CHLORIDE 20MEQ/PACKET PO SCH (08:00)
[2020-01-21] MEDS: MULTIVITAMINS,THER W-MINERALS TABLET PO SCH (08:27)
[2020-01-21] MEDS: THIAMINE HCL 100MG TABLET PO SCH ×2 (08:28→20:26)
[2020-01-21] MEDS: ASCORBIC ACID 500 MG TABLET PO SCH ×2 (08:28→16:00)
[2020-01-21] MEDS: PANTOPRAZOLE SODIUM 40 MG/VIAL IV SCH (08:28)
[2020-01-21] MEDS: ZINC SULFATE 220 MG ( 50 ) CAPSULE PO SCH (08:28)
[2020-01-21] MEDS: QUETIAPINE FUMARATE 25MG TABLET PO SCH (08:28)
[2020-01-21 10:23] LABS: BG BASE EXCESS -2.7 mmol/L (-2.0-2.0); BG CARBOXYHEMOGLOBIN 0.3 % (0.5-1.5); BG DEOXYHEMOGLOBIN 4.3 % (0.0-5.0); BG FRACTION INSPIRED OXYGEN 40; BG METHEMOGLOBIN 0.1 % (0.0-1.5); BG OXYGEN SATURATION 95.7 % (92.0-98.5); BG OXYHEMOGLOBIN 95.3 % (94.0-97.0); BG PCO2 33.1 mmHg (35.0-45.0); BG PH 7.421 (7.350-7.450); BG PO2 76.8 mmHg (75.0-100.0); BG PRESSURE SUPPORT 12; BG SAMPLE SITE RIGHT RADIAL; BG TIDAL VOLUME(mL) 500 mL; BG TOTAL HEMOGLOBIN 11.6 g/dL (12.0-18.0); BG VENT MODE VENT - SIMV; BG VENT RATE 8 set
[2020-01-21] MEDS: ACETAMINOPHEN 325MG TABLET PO PRN ×2 (14:03→20:26)
[2020-01-21] MEDS: ENOXAPARIN 40MG/0.4ML SYR SUBCUT SCH (20:26)
[2020-01-21] MEDS: RISPERIDONE 1MG TABLET PO SCH (20:26)
[2020-01-22] VITALS (80 sets, daily range): BP systolic 86–154; BP diastolic 54–84
[2020-01-22] MEDS: PROPOFOL 10MG/ML 100ML 100 ML IV PRN ×2 (01:52→06:35)
[2020-01-22] MEDS: FENTANYL CITRATE/PF 1,000 MCG in SODIUM CHLORIDE 0.9% 80 ML IV PRN ×3 (03:14→09:34)
[2020-01-22] MEDS: CEFTRIAXONE 2 G in DEXTROSE 5% WATER 50 ML IV SCH (03:16)
[2020-01-22 06:36] LABS: HEMATOCRIT. 31.1 % (42.0-52.0); HEMOGLOBIN. 9.9 g/dL (14.0-18.0); MEAN CORPUSCULAR HEMOGLOBIN 28.6 pg (28.0-32.0); MEAN CORPUSCULAR VOLUME 89.3 fL (80.0-94.0); MEAN PLATELET VOLUME 10.8 fl (7.4-10.4); PLATELET 253 x1000/uL (130-400); RED BLOOD CELL COUNT 3.48 mill/uL (4.7-6.1); RED CELL DISTRIBUTION WIDTH 13.9 % (11.6-14.6)
[2020-01-22 06:43] LABS: CHLORIDE 116 mEq/L (98-107)
[2020-01-22 06:51] LABS: PHOSPHORUS 2.3 mg/dL (2.5-4.9)
[2020-01-22 08:37] LABS: BG CARBOXYHEMOGLOBIN 0.3 % (0.5-1.5); BG DEOXYHEMOGLOBIN 3.3 % (0.0-5.0); BG FRACTION INSPIRED OXYGEN 40; BG HCO3 ACT 20.5 mmol/L (22.0-26.0); BG METHEMOGLOBIN 0.1 % (0.0-1.5); BG OXYGEN SATURATION 96.7 % (92.0-98.5); BG OXYHEMOGLOBIN 96.3 % (94.0-97.0); BG PCO2 35.7 mmHg (35.0-45.0); BG PH 7.378 (7.350-7.450); BG PO2 87.4 mmHg (75.0-100.0); BG PRESSURE SUPPORT 12; BG SAMPLE SITE RIGHT RADIAL; BG TIDAL VOLUME(mL) 500 mL; BG TOTAL HEMOGLOBIN 11.5 g/dL (12.0-18.0); BG VENT MODE VENT - SIMV; BG VENT RATE 8 set
[2020-01-22] MEDS: MULTIVITAMINS,THER W-MINERALS TABLET PO SCH (08:52)
[2020-01-22] MEDS: PANTOPRAZOLE SODIUM 40 MG/VIAL IV SCH (08:52)
[2020-01-22] MEDS: RISPERIDONE 1MG TABLET PO SCH ×2 (08:52→21:10)
[2020-01-22] MEDS: THIAMINE HCL 100MG TABLET PO SCH ×2 (08:52→21:10)
[2020-01-22] MEDS: ACETAMINOPHEN 325MG TABLET PO PRN ×2 (08:52→17:35)
[2020-01-22] MEDS: ASCORBIC ACID 500 MG TABLET PO SCH ×2 (08:52→17:35)
[2020-01-22] MEDS: ZINC SULFATE 220 MG ( 50 ) CAPSULE PO SCH (08:53)
[2020-01-22] MEDS: MIDAZOLAM HCL 100 MG in DEXT 5% WATER 80 ML IV PRN (08:54)
[2020-01-22 10:31] LABS: PLATELET ESTIMATE NORMAL
[2020-01-22] MEDS ORDERED: MAGNESIUM 1 G PREMIX 100 ML IV NR (11:15)
[2020-01-22] MEDS: METHADONE HCL 10MG TABLET PO SCH (11:55)
[2020-01-22] MEDS ORDERED: POTASSIUM CHLORIDE INJ 40 MEQ in DEXT 5% WATER 250 ML IV NR (12:00)
[2020-01-22] MEDS: ENOXAPARIN 40MG/0.4ML SYR SUBCUT SCH (21:10)
[2020-01-23] VITALS (80 sets, daily range): BP systolic 113–147; BP diastolic 47–93
[2020-01-23] MEDS: ACETAMINOPHEN 325MG TABLET PO PRN ×2 (00:02→08:39)
[2020-01-23] MEDS: CEFTRIAXONE 2 G in DEXTROSE 5% WATER 50 ML IV SCH (03:00)
[2020-01-23 05:53] LABS: HEMOGLOBIN. 9.3 g/dL (14.0-18.0); MEAN CORPUSCULAR HEMOGLOBIN 28.8 pg (28.0-32.0); MEAN CORPUSCULAR VOLUME 89.7 fL (80.0-94.0); MEAN PLATELET VOLUME 10.3 fl (7.4-10.4); PLATELET 251 x1000/uL (130-400); RED BLOOD CELL COUNT 3.24 mill/uL (4.7-6.1)
[2020-01-23 05:58] LABS: CHLORIDE 115 mEq/L (98-107)
[2020-01-23 06:05] LABS: PHOSPHORUS 2.3 mg/dL (2.5-4.9)
[2020-01-23 08:32] LABS: BG BASE EXCESS -2.3 mmol/L (-2.0-2.0); BG CARBOXYHEMOGLOBIN 0.2 % (0.5-1.5); BG DEOXYHEMOGLOBIN 1.7 % (0.0-5.0); BG FRACTION INSPIRED OXYGEN 40; BG HCO3 ACT 22.5 mmol/L (22.0-26.0); BG METHEMOGLOBIN 0.2 % (0.0-1.5); BG OXYGEN SATURATION 98.3 % (92.0-98.5); BG OXYHEMOGLOBIN 97.9 % (94.0-97.0); BG PCO2 38.3 mmHg (35.0-45.0); BG PH 7.386 (7.350-7.450); BG PO2 115.6 mmHg (75.0-100.0); BG PRESSURE SUPPORT 12; BG SAMPLE SITE RIGHT RADIAL; BG TIDAL VOLUME(mL) 500 mL; BG TOTAL HEMOGLOBIN 8.7 g/dL (12.0-18.0); BG VENT MODE VENT - SIMV; BG VENT RATE 8 set
[2020-01-23] MEDS: PANTOPRAZOLE SODIUM 40 MG/VIAL IV SCH (08:38)
[2020-01-23] MEDS: MULTIVITAMINS,THER W-MINERALS TABLET PO SCH (08:39)
[2020-01-23 08:40] LABS: PLATELET ESTIMATE NORMAL
[2020-01-23] MEDS: ASCORBIC ACID 500 MG TABLET PO SCH ×2 (08:40→17:57)
[2020-01-23] MEDS: METHADONE HCL 10MG TABLET PO SCH (08:40)
[2020-01-23] MEDS: THIAMINE HCL 100MG TABLET PO SCH ×2 (08:40→21:02)
[2020-01-23] MEDS: ZINC SULFATE 220 MG ( 50 ) CAPSULE PO SCH (08:40)
[2020-01-23] MEDS: RISPERIDONE 1MG TABLET PO SCH ×2 (08:44→21:02)
[2020-01-23] MEDS ORDERED: POTASSIUM PHOS,M-BASIC-D-BASIC 20 MMOL in DEXT 5% WATER 243.3333 ML IV SCH (11:00)
[2020-01-23] MEDS ORDERED: MAGNESIUM 2 G PREMIX 50 ML IV SCH (11:00)
[2020-01-23] MEDS: ENOXAPARIN 40MG/0.4ML SYR SUBCUT SCH (21:01)
[2020-01-24] VITALS (48 sets, daily range): BP systolic 115–151; BP diastolic 52–90
[2020-01-24] MEDS: CEFTRIAXONE 2 G in DEXTROSE 5% WATER 50 ML IV SCH (06:28)
[2020-01-24 06:54] LABS: CHLORIDE 112 mEq/L (98-107)
[2020-01-24 06:59] LABS: PHOSPHORUS 2.1 mg/dL (2.5-4.9)
[2020-01-24 07:37] LABS: BG BASE EXCESS 3.4 mmol/L (-2.0-2.0); BG CARBOXYHEMOGLOBIN 0.3 % (0.5-1.5); BG DEOXYHEMOGLOBIN 1.7 % (0.0-5.0); BG FRACTION INSPIRED OXYGEN 35; BG HCO3 ACT 27.5 mmol/L (22.0-26.0); BG METHEMOGLOBIN 0.3 % (0.0-1.5); BG OXYGEN SATURATION 98.3 % (92.0-98.5); BG OXYHEMOGLOBIN 97.7 % (94.0-97.0); BG PCO2 39.8 mmHg (35.0-45.0); BG PH 7.458 (7.350-7.450); BG PRESSURE SUPPORT 12; BG SAMPLE SITE RIGHT RADIAL; BG TIDAL VOLUME(mL) 500 mL; BG TOTAL HEMOGLOBIN 9.3 g/dL (12.0-18.0); BG VENT MODE VENT - SIMV; BG VENT RATE 8 set
[2020-01-24 08:36] LABS: HEMATOCRIT. 27.1 % (42.0-52.0); HEMOGLOBIN. 8.9 g/dL (14.0-18.0); MEAN CORPUSCULAR HEMOGLOBIN 29.4 pg (28.0-32.0); MEAN CORPUSCULAR VOLUME 89.5 fL (80.0-94.0); MEAN PLATELET VOLUME 10.2 fl (7.4-10.4); PLATELET 263 x1000/uL (130-400); RED BLOOD CELL COUNT 3.02 mill/uL (4.7-6.1); RED CELL DISTRIBUTION WIDTH 14.2 % (11.6-14.6)
[2020-01-24] MEDS: PANTOPRAZOLE SODIUM 40 MG/VIAL IV SCH (08:55)
[2020-01-24] MEDS: ASCORBIC ACID 500 MG TABLET PO SCH ×2 (08:55→17:41)
[2020-01-24] MEDS: MULTIVITAMINS,THER W-MINERALS TABLET PO SCH (08:55)
[2020-01-24] MEDS: ZINC SULFATE 220 MG ( 50 ) CAPSULE PO SCH (08:56)
[2020-01-24] MEDS: METHADONE HCL 10MG TABLET PO SCH (08:56)
[2020-01-24] MEDS: THIAMINE HCL 100MG TABLET PO SCH ×2 (08:56→21:30)
[2020-01-24] MEDS: RISPERIDONE 1MG TABLET PO SCH ×2 (08:56→21:30)
[2020-01-24] MEDS ORDERED: POTASSIUM PHOS,M-BASIC-D-BASIC 15 MMOL in DEXT 5% WATER 245 ML IV NR (09:00)
[2020-01-24 10:01] LABS: PLATELET ESTIMATE NORMAL
[2020-01-24 11:07] LABS: BG BASE EXCESS 1.1 mmol/L (-2.0-2.0); BG CARBOXYHEMOGLOBIN 0.3 % (0.5-1.5); BG DEOXYHEMOGLOBIN 2.3 % (0.0-5.0); BG FRACTION INSPIRED OXYGEN 35; BG HCO3 ACT 26.8 mmol/L (22.0-26.0); BG METHEMOGLOBIN 0.2 % (0.0-1.5); BG OXYGEN SATURATION 97.7 % (92.0-98.5); BG OXYHEMOGLOBIN 97.2 % (94.0-97.0); BG PCO2 48.5 mmHg (35.0-45.0); BG PH 7.361 (7.350-7.450); BG PO2 104.3 mmHg (75.0-100.0); BG PRESSURE SUPPORT 8; BG SAMPLE SITE RIGHT RADIAL; BG TOTAL HEMOGLOBIN 9.3 g/dL (12.0-18.0); BG VENT MODE VENT - CPAP
[2020-01-24] MEDS: ACETAMINOPHEN 325MG TABLET PO PRN (13:20)
[2020-01-24] MEDS: ENOXAPARIN 40MG/0.4ML SYR SUBCUT SCH (21:30)
[2020-01-25] VITALS (48 sets, daily range): BP systolic 119–167; BP diastolic 58–90
[2020-01-25] MEDS: CEFTRIAXONE 2 G in DEXTROSE 5% WATER 50 ML IV SCH (05:00)
[2020-01-25 06:00] LABS: BASOPHILS % 1.3 % (0.0-2.0); EOSINOPHILS % 3.1 % (0.0-5.0); HEMATOCRIT. 28.6 % (42.0-52.0); HEMOGLOBIN. 9.4 g/dL (14.0-18.0); LYMPHOCYTES % 10.5 % (20.0-50.0); MEAN CORPUSCULAR HEMOGLOBIN 29.4 pg (28.0-32.0); MEAN CORPUSCULAR VOLUME 89.1 fL (80.0-94.0); MEAN PLATELET VOLUME 10.5 fl (7.4-10.4); MONOCYTES % 6.4 % (2.0-8.0); NEUTROPHILS % 78.7 % (40.0-76.0); PLATELET 275 x1000/uL (130-400); RED BLOOD CELL COUNT 3.21 mill/uL (4.7-6.1); RED CELL DISTRIBUTION WIDTH 13.9 % (11.6-14.6)
[2020-01-25 06:05] LABS: CHLORIDE 110 mEq/L (98-107)
[2020-01-25 06:12] LABS: PHOSPHORUS 2.3 mg/dL (2.5-4.9)
[2020-01-25] MEDS: ASCORBIC ACID 500 MG TABLET PO SCH ×2 (09:02→17:13)
[2020-01-25] MEDS: ZINC SULFATE 220 MG ( 50 ) CAPSULE PO SCH (09:02)
[2020-01-25] MEDS: THIAMINE HCL 100MG TABLET PO SCH ×2 (09:02→20:43)
[2020-01-25] MEDS: MULTIVITAMINS,THER W-MINERALS TABLET PO SCH (09:02)
[2020-01-25] MEDS: RISPERIDONE 1MG TABLET PO SCH ×2 (09:02→20:43)
[2020-01-25] MEDS: PANTOPRAZOLE SODIUM 40 MG/VIAL IV SCH (09:03)
[2020-01-25] MEDS: METHADONE HCL 10MG TABLET PO SCH (09:03)
[2020-01-25] MEDS ORDERED: POTASSIUM PHOS,M-BASIC-D-BASIC 15 MMOL in DEXT 5% WATER 245 ML IV ONE (10:00)
[2020-01-25] MEDS: ENOXAPARIN 40MG/0.4ML SYR SUBCUT SCH (20:43)
[2020-01-26] VITALS (9 sets, daily range): BP systolic 100–134; BP diastolic 49–76
[2020-01-26] MEDS: CEFTRIAXONE 2 G in DEXTROSE 5% WATER 50 ML IV SCH (04:11)
[2020-01-26] MEDS: PANTOPRAZOLE SODIUM 40 MG/VIAL IV SCH (08:49)
[2020-01-26] MEDS: RISPERIDONE 1MG TABLET PO SCH ×2 (08:50→21:02)
[2020-01-26] MEDS: ASCORBIC ACID 500 MG TABLET PO SCH ×2 (08:50→17:25)
[2020-01-26] MEDS: THIAMINE HCL 100MG TABLET PO SCH ×2 (08:50→21:02)
[2020-01-26] MEDS: ACETAMINOPHEN 325MG TABLET PO PRN ×2 (08:50→17:25)
[2020-01-26] MEDS: ZINC SULFATE 220 MG ( 50 ) CAPSULE PO SCH (08:50)
[2020-01-26] MEDS: MULTIVITAMINS,THER W-MINERALS TABLET PO SCH (08:50)
[2020-01-26] MEDS: METHADONE HCL 10MG TABLET PO SCH (08:50)
[2020-01-26 11:41] LABS: HEMATOCRIT. 27.3 % (42.0-52.0); HEMOGLOBIN. 9.1 g/dL (14.0-18.0); MEAN CORPUSCULAR HEMOGLOBIN 29.9 pg (28.0-32.0); MEAN CORPUSCULAR VOLUME 89.5 fL (80.0-94.0); MEAN PLATELET VOLUME 9.6 fl (7.4-10.4); PLATELET 291 x1000/uL (130-400); RED BLOOD CELL COUNT 3.04 mill/uL (4.7-6.1)
[2020-01-26 11:54] LABS: CHLORIDE 109 mEq/L (98-107)
[2020-01-26 11:59] LABS: PHOSPHORUS 2.9 mg/dL (2.5-4.9)
[2020-01-26 14:26] LABS: PLATELET ESTIMATE NORMAL
[2020-01-26] MEDS: IPRATROPIUM/ALBUTEROL 0.5-3(2.5)MG/3ML NEB HHN SCH ×2 (16:22→19:45)
[2020-01-26] MEDS: ACETYLCYSTEINE 100MG/ML 10% VIAL 4ML INH SCH (16:22)
[2020-01-26 18:26] LABS: CHLORIDE 108 mEq/L (98-107)
[2020-01-26] MEDS: ENOXAPARIN 40MG/0.4ML SYR SUBCUT SCH (21:03)
[2020-01-26] MEDS: GUAIFENESIN 200MG/10ML SUGAR FREE UDC PO PRN ×6 (22:21→22:32)
[2020-01-27] VITALS: BP 114/65
[2020-01-27] MEDS: IPRATROPIUM/ALBUTEROL 0.5-3(2.5)MG/3ML NEB HHN SCH ×6 (04:17→20:50)
[2020-01-27 06:50] LABS: BASOPHILS % 0.9 % (0.0-2.0); EOSINOPHILS % 3.9 % (0.0-5.0); HEMATOCRIT. 26.3 % (42.0-52.0); HEMOGLOBIN. 8.8 g/dL (14.0-18.0); LYMPHOCYTES % 11.2 % (20.0-50.0); MEAN CORPUSCULAR HEMOGLOBIN 29.4 pg (28.0-32.0); MEAN CORPUSCULAR VOLUME 88.3 fL (80.0-94.0); MEAN PLATELET VOLUME 9.7 fl (7.4-10.4); PLATELET 314 x1000/uL (130-400); RED BLOOD CELL COUNT 2.97 mill/uL (4.7-6.1); RED CELL DISTRIBUTION WIDTH 13.5 % (11.6-14.6)
[2020-01-27 07:00] LABS: CHLORIDE 109 mEq/L (98-107)
[2020-01-27] MEDS: ACETYLCYSTEINE 100MG/ML 10% VIAL 4ML INH SCH ×4 (07:55→20:50)
[2020-01-27 08:00] VITALS: BP 118/64
[2020-01-27] MEDS: ASCORBIC ACID 500 MG TABLET PO SCH ×2 (09:53→16:58)
[2020-01-27] MEDS: THIAMINE HCL 100MG TABLET PO SCH ×2 (09:53→20:50)
[2020-01-27] MEDS: PANTOPRAZOLE SODIUM 40 MG/VIAL IV SCH (09:53)
[2020-01-27] MEDS: ZINC SULFATE 220 MG ( 50 ) CAPSULE PO SCH (09:54)
[2020-01-27] MEDS: RISPERIDONE 1MG TABLET PO SCH ×2 (09:54→20:49)
[2020-01-27] MEDS: MULTIVITAMINS,THER W-MINERALS TABLET PO SCH (09:54)
[2020-01-27] MEDS: METHADONE HCL 10MG TABLET PO SCH (09:57)
[2020-01-27] MEDS: ACETAMINOPHEN 325MG TABLET PO PRN (10:52)
[2020-01-27 12:00] VITALS: BP 105/58
[2020-01-27 16:00] VITALS: BP 106/63
[2020-01-27 20:00] VITALS: BP 108/63
[2020-01-27] MEDS: ENOXAPARIN 40MG/0.4ML SYR SUBCUT SCH (20:55)
[2020-01-28] MEDS: ACETYLCYSTEINE 100MG/ML 10% VIAL 4ML INH SCH (01:03)
[2020-01-28] MEDS: IPRATROPIUM/ALBUTEROL 0.5-3(2.5)MG/3ML NEB HHN SCH (01:03)
[2020-01-28 04:00] VITALS: BP 116/2
[2020-01-28 08:00] VITALS: BP 119/73
[2020-01-28] MEDS: ACETAMINOPHEN 325MG TABLET PO PRN (11:58)
[2020-01-28] MEDS: THIAMINE HCL 100MG TABLET PO SCH ×2 (11:59→21:28)
[2020-01-28] MEDS: MULTIVITAMINS,THER W-MINERALS TABLET PO SCH (11:59)
[2020-01-28] MEDS: ZINC SULFATE 220 MG ( 50 ) CAPSULE PO SCH (11:59)
[2020-01-28] MEDS: PANTOPRAZOLE SODIUM 40 MG/VIAL IV SCH (11:59)
[2020-01-28] MEDS: ASCORBIC ACID 500 MG TABLET PO SCH ×2 (11:59→17:25)
[2020-01-28] MEDS: RISPERIDONE 1MG TABLET PO SCH ×2 (11:59→21:28)
[2020-01-28 12:00] VITALS: BP 123/77
[2020-01-28 16:00] VITALS: BP 109/66
[2020-01-28 20:00] VITALS: BP 115/78
[2020-01-28] MEDS: ENOXAPARIN 40MG/0.4ML SYR SUBCUT SCH (21:30)
[2020-01-29] VITALS: BP 100/67
[2020-01-29] MEDS: ACETYLCYSTEINE 100MG/ML 10% VIAL 4ML INH SCH ×3 (02:23→16:02)
[2020-01-29 04:00] VITALS: BP 124/73
[2020-01-29 07:00] LABS: BASOPHILS % 1.1 % (0.0-2.0); EOSINOPHILS % 4.1 % (0.0-5.0); HEMATOCRIT. 26.9 % (42.0-52.0); LYMPHOCYTES % 13.2 % (20.0-50.0); MEAN CORPUSCULAR HEMOGLOBIN 29.2 pg (28.0-32.0); MEAN CORPUSCULAR VOLUME 87.5 fL (80.0-94.0); MONOCYTES % 5.3 % (2.0-8.0); NEUTROPHILS % 76.3 % (40.0-76.0); PLATELET 422 x1000/uL (130-400); RED BLOOD CELL COUNT 3.07 mill/uL (4.7-6.1); RED CELL DISTRIBUTION WIDTH 13.5 % (11.6-14.6)
[2020-01-29 07:02] LABS: CHLORIDE 105 mEq/L (98-107)
[2020-01-29 08:00] VITALS: BP 111/70
[2020-01-29] MEDS: IPRATROPIUM/ALBUTEROL 0.5-3(2.5)MG/3ML NEB HHN SCH ×2 (08:41→16:02)
[2020-01-29] MEDS: PANTOPRAZOLE SODIUM 40 MG/VIAL IV SCH (09:19)
[2020-01-29] MEDS: THIAMINE HCL 100MG TABLET PO SCH ×2 (09:20→21:37)
[2020-01-29] MEDS: ZINC SULFATE 220 MG ( 50 ) CAPSULE PO SCH (09:20)
[2020-01-29] MEDS: RISPERIDONE 1MG TABLET PO SCH ×2 (09:20→21:37)
[2020-01-29] MEDS: MULTIVITAMINS,THER W-MINERALS TABLET PO SCH (09:21)
[2020-01-29] MEDS: ASCORBIC ACID 500 MG TABLET PO SCH ×2 (09:21→17:18)
[2020-01-29] MEDS ORDERED: FUROSEMIDE 40MG/4ML VIAL IVP SCH (10:45)
[2020-01-29 12:00] VITALS: BP 126/67
[2020-01-29 16:00] VITALS: BP 121/76
[2020-01-29 20:00] VITALS: BP 127/82
[2020-01-29] MEDS: ENOXAPARIN 40MG/0.4ML SYR SUBCUT SCH (21:37)
[2020-01-30] VITALS: BP 132/84
[2020-01-30] MEDS: IPRATROPIUM/ALBUTEROL 0.5-3(2.5)MG/3ML NEB HHN SCH ×3 (02:18→15:23)
[2020-01-30 04:00] VITALS: BP 116/74
[2020-01-30 06:41] LABS: EOSINOPHILS % 3.1 % (0.0-5.0); HEMATOCRIT. 28.5 % (42.0-52.0); HEMOGLOBIN. 9.5 g/dL (14.0-18.0); LYMPHOCYTES % 16.5 % (20.0-50.0); MEAN CORPUSCULAR HEMOGLOBIN 29.1 pg (28.0-32.0); MEAN CORPUSCULAR VOLUME 87.3 fL (80.0-94.0); MEAN PLATELET VOLUME 9.9 fl (7.4-10.4); MONOCYTES % 5.2 % (2.0-8.0); NEUTROPHILS % 74.2 % (40.0-76.0); PLATELET 526 x1000/uL (130-400); RED BLOOD CELL COUNT 3.27 mill/uL (4.7-6.1); RED CELL DISTRIBUTION WIDTH 13.4 % (11.6-14.6)
[2020-01-30 06:48] LABS: CHLORIDE 104 mEq/L (98-107)
[2020-01-30] MEDS: ZINC SULFATE 220 MG ( 50 ) CAPSULE PO SCH (08:37)
[2020-01-30] MEDS: MULTIVITAMINS,THER W-MINERALS TABLET PO SCH (08:38)
[2020-01-30] MEDS: PANTOPRAZOLE SODIUM 40 MG/VIAL IV SCH (08:38)
[2020-01-30] MEDS: ASCORBIC ACID 500 MG TABLET PO SCH ×2 (08:38→18:05)
[2020-01-30] MEDS: RISPERIDONE 1MG TABLET PO SCH ×2 (08:38→21:24)
[2020-01-30] MEDS: THIAMINE HCL 100MG TABLET PO SCH ×2 (08:41→21:24)
[2020-01-30 08:54] VITALS: BP 110/74
[2020-01-30 12:00] VITALS: BP 121/79
[2020-01-30 16:00] VITALS: BP 114/70
[2020-01-30] MEDS: ENOXAPARIN 40MG/0.4ML SYR SUBCUT SCH (21:25)
== END 2020-01-31 00:10 | disposition expired | DRG 720 ==
LOC: ER 15:09 → EDBEDREQSVC 15:55 → EDBEDREQ 18:36 → MICUSO 19:31 → ENRESERV 19:38 → CVICU 01-23 18:20 → 6WST 01-26 01:56 → 6EST 01-29 14:47
PROVIDERS: ADMIT Hospitalist; ATTEND Hospitalist
PROC: 0BH17EZ Insertion of Endotracheal Airway into Trachea, Via Natural or Artificial Opening (ICD-10-PCS; principal; 2020-01-07)
PROC: 5A1955Z Respiratory Ventilation, Greater than 96 Consecutive Hours (ICD-10-PCS; 2020-01-07)
PROC: 02HV33Z Insertion of Infusion Device into Superior Vena Cava, Percutaneous Approach (ICD-10-PCS; 2020-01-08)
PROC: B548ZZA Ultrasonography of Superior Vena Cava, Guidance (ICD-10-PCS; 2020-01-08)
DX: A41.89 Other specified sepsis (principal); U07.1 COVID-19; N17.0 Acute kidney failure with tubular necrosis; J96.01 Acute respiratory failure with hypoxia; R65.21 Severe sepsis with septic shock; E43 Unspecified severe protein-calorie malnutrition; J12.89 Other viral pneumonia; J44.0 Chronic obstructive pulmonary disease with (acute) lower respiratory infection; E86.0 Dehydration; E87.0 Hyperosmolality and hypernatremia; E87.2 Acidosis; E87.6 Hypokalemia; E87.1 Hypo-osmolality and hyponatremia; D63.8 Anemia in other chronic diseases classified elsewhere; A41.59 Other Gram-negative sepsis; B18.2 Chronic viral hepatitis C; N18.9 Chronic kidney disease, unspecified; D64.9 Anemia, unspecified; F11.20 Opioid dependence, uncomplicated; Z66 Do not resuscitate; R73.9 Hyperglycemia, unspecified; E87.5 Hyperkalemia; D72.810 Lymphocytopenia; Z90.49 Acquired absence of other specified parts of digestive tract; Z68.23 Body mass index [BMI] 23.0-23.9, adult
CPT/HCPCS: 36415; 36600; 71045; 76937; 80048; 80053; 81003; 82375; 82728; 82805; 82962; 83605; 83615; 83735; 83880; 84100; 84145; 84478; 84484; 85025; 85379; 86140; 87077; 87186; 87389; 87635; 87804; 92610; 93005; 93971; 94002; 94003; 97110; 97163; 97166; 97530; 99291; C1725; C9113; J0330; J0456; J0696; J1650; J1940; J2020; J2060; J2250; J2543; J2704; J2920; J3010; J3370; J3475; J3480; J3490; J7030; J7050; J7060; J7608